=== PATIENT | female | born 1955 | race Caucasian/White ===

== ENCOUNTER 2019-07-20 14:48 | Outpatient (CLI) | payer BC ==
--- NOTE | 2019-07-20 15:19 | ULT ---
DOPPLER VENOUS ULTRASOUND OF THE RIGHT LOWER EXTREMITY: Date: 07/20/19 INDICATION: Edema and redness in the right lower extremity with pain. TECHNIQUE: Winkler scale, color Doppler, and vascular duplex with spectral analysis was performed of the deep venou s structures of the right lower extremity. The common femoral vein, superficial femoral vein, proxima l greater saphenous vein, proximal greater profunda vein, popliteal, and posterior tibial veins were assessed. Additional images were obtained of the region of pain along the right greater saphenous vei n of the foreleg and medial foot. FINDINGS: Normal compression, flow, and augmentation was seen within the deep venous structures of the right lo wer extremity. Within the level of the medial right calf, extending through the medial aspect of the right foot, is occlusive thrombus within the greater saphenous vein. IMPRESSION: 1. Superficial venous thrombosis of the greater saphenous vein from the level of the medial calf thr ough the level of the medial foot. 2. No evidence of deep venous thrombosis within the right lower extremity. POS: OFF
== END 2019-07-20 14:49 | disposition home or self-care (01) ==
LOC: BICULT 14:48
PROVIDERS: ATTEND Family Medicine
DX: M79.604 Pain in right leg (principal); I82.811 Embolism and thrombosis of superficial veins of right lower extremity

== ENCOUNTER 2020-05-07 08:41 | Emergency (ER) | payer BC ==
[2020-05-07 10:15] LABS: #Basophils 0.1 thou/uL (0.0-0.2); #Eosinphils 0.1 thou/uL (0.0-0.7); #Lymphocytes 1.5 thou/uL (1.20-3.40); #Monocytes 0.7 thou/uL (0.11-0.59); #Neutrophils 5.4 thou/uL (1.40-6.50); %Basophils 0.8 % (0.0-1.0); %Eosinophils 1.7 % (0.0-10.0); %Monocytes 9.5 % (0.0-10.0); %Neutrophils 69.1 % (42.0-75.0); Hemoglobin 12.4 g/dL (12.0-16.0); Mean Corpuscular HGB CONC 31.9 g/dL (32.0-36.0); Mean Corpuscular Hemoglobin 28.4 pg (27.0-31.0); Mean Corpuscular Volume 88.9 fL (78.0-98.0); Mean Platelet Volume 7.5 fL (7.4-10.4); Platelet Count 220 thou/uL (130-400); Red Blood Cell (RBC) Count 4.37 mill/uL (4.20-5.40); White Blood Cell (WBC) Count 7.8 thou/uL (4.8-10.8)
[2020-05-07 10:21] LABS: INR-International Normal Ratio 1.1; Prothrombin Time 13.8 sec (12.0-14.7)
[2020-05-07 10:22] LABS: PTT 29.2 sec (22.9-36.1)
[2020-05-07 10:32] LABS: ALT (SGPT) 16 U/L (8-55); AST (SGOT) 13 U/L (5-34); Albumin 3.8 g/dL (3.4-4.8); Alkaline Phosphatase 79 U/L (40-110); Anion Gap 14 mmol/L (10-20); BUN (Urea Nitrogen) 23 mg/dL (9.8-20.1); Bilirubin, Total 0.5 mg/dL (0.2-1.2); Calc. Creatinine Clearance 0 mL/min (70-130); Calcium 10.2 mg/dL (7.8-10.44); Carbon Dioxide 23 mmol/L (23-31); Chloride 106 mmol/L (98-107); Estimated GFR-MDRD 49; Globulin 2.9 g/dL (2.4-3.5); Glucose 83 mg/dL (80-115); Protein, Total 6.7 g/dL (6.0-8.3); Sodium 138 mmol/L (136-145)
[2020-05-07] MEDS ORDERED: Enoxaparin Sodium 100 MG/ML SYRINGE ONE (10:37)
--- NOTE | 2020-05-07 10:58 | ULT ---
LEFT LOWER EXTREMITY VENOUS DUPLEX STUDY: INDICATIONS: Left lower extremity pain and edema. TECHNIQUE: The deep veins of the left lower extremity are evaluated with ultrasound and Doppler. Color Doppler w ith spectral analysis and compression performed. FINDINGS: Normal flow and compression is seen in the left common femoral vein and superficial femoral vein. However there is occlusive thrombus in the left popliteal vein and in the left posterior tibial vein. IMPRESSION: 1. Deep venous thrombosis in the left lower extremity with thrombus seen in the popliteal vein and in the posterior tibial vein below the knee. 2. The technologist relayed these findings to the patient's nurse. CODE CR POS: ALEIDA
[2020-05-07] MEDS ORDERED: Apixaban 5 MG TAB PO SCH (12:30)
--- NOTE | 2020-05-07 18:33 | CON ---
DATE OF CONSULTATION: 05/07/20 DATE OF ENCOUNTER: 05/07/20 REASON FOR CONSULTATION: DVT. HISTORY OF PRESENT ILLNESS: This patient is a 64-year-old female who presented with left lower extremity pain. The patient has a history of some superficial phlebitis as demonstrated on ultrasound of her right lower extremity in July of 2019. She also has restless legs syndrome and so her legs do give her some discomfort. The patient reports that several days ago she started having some redness in her left calf posteriorly. She thought it was some type of an insect bite, radiated up to the mid calf area, rated 3 to 4 out of 10. She had no chest pain, no shortness of breath. The patient did report that starting night, she had some vomiting and generalized weakness with subsequent diarrhea that lasted through yesterday but that appears to be generally resolved. She denies any fevers, chills, cough, or shortness of breath. The patient does drive from [place] to [place] every day and sits at a desk all day. Other than that, she has been on no long trips and has had no lower extremity injuries or immobility that she is aware of. The patient does report she had a coronavirus screening back in January at work, but has not had one since. PAST MEDICAL HISTORY: Notable for hypertension, hyperlipidemia, sleep apnea and restless legs syndrome. SURGICAL HISTORY: Hysterectomy. SOCIAL HISTORY: Nonsmoker, nondrinker, nondrug user. She is , lives at home. CURRENT MEDICATIONS: 1. Gabapentin 300 mg q.i.d. 2. Garlic 200 mg at bedtime. 3. Hydralazine 25 mg b.i.d. 4. Lisinopril 20 mg b.i.d. 5. Omeprazole 40 mg daily. 6. Ropinirole 3 mg daily. 7. Tramadol 50 mg q.4 hours p.r.n. ALLERGIES: SULFA. PHYSICAL EXAMINATION: VITAL SIGNS: BP 129/57, pulse 57, respirations 20, O2 saturation 99% on room air, temperature is 98.4. GENERAL APPEARANCE: Age-appropriate female, in no distress. She is awake, alert, oriented, pleasant, cooperative. HEENT: PERRL. NECK: Supple and symmetric. HEART: Regular rate and rhythm without murmurs. LUNGS: Clear bilaterally. ABDOMEN: Soft, nontender, and nondistended. Positive bowel sounds. No masses. No organomegaly. EXTREMITIES: There is no significant cyanosis or clubbing. The left lower extremity has a small area of erythema from the Achilles area going up about 3 to 4 inches. There are no palpable cords. This entire calf area is mildly generally tender, but not generally edematous or erythematous other than that localized area. LABORATORY DATA: White count 7.8, hemoglobin 12.4, platelets 220, lymphocytes 19,000. INR is 1.1, PTT 29.2, PT is 13.8. Sodium 138, potassium 5.0, chloride 106, CO2 is 23, BUN 23, creatinine is 1.13, glucose 83. AST is 13, ALT 16, albumin 3.8. Vascular ultrasound of the lower extremities showed DVT in the left lower extremity with thrombus seen in the popliteal vein and posterior tibial vein below the knee. IMPRESSION AND PLAN: 1. Left lower extremity deep venous thrombosis. The patient has ultrasound confirming that this is at or below the level of the knee, therefore would be considered at low risk. Therefore, I think she can safely be discharged on oral Eliquis. She will be given a 10 mg dose here. She will have a prescription for 10 mg b.i.d. for one week and then 5 mg b.i.d. subsequent. She is to follow up with Dr. Guevara. It is unclear whether this was provoked by the GI symptoms and the traveling back and forth and long period sitting at her desk at work time. Ultimately, decision will have to be made regarding duration of treatment. 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 2. Dehydration. The patient has had some GI symptoms and associated nausea, vomiting, diarrhea. She has mild prerenal azotemia on her labs. We will encourage her to push fluids and follow up with Dr. Guevara to have repeat labs done. 3. Gastroenteritis symptoms, appear to be resolved. I did recommend the patient consider COVID screening especially in light of very mild lymphopenia. However , the patient has had this done before, found it fairly unpleasant and would prefer not to do that again. I asked her to discuss this with Dr. Guevara further. There is a screening available to her tomorrow in [place] and she can get tested there if need be. In the meantime, she should take appropriate isolation precautions. Job ID: [id number] MTDD
--- NOTE | 2020-05-08 12:01 | EKG ---
Test Reason : Blood Pressure : / mmHG Vent. Rate : 057 BPM Atrial Rate : 057 BPM P-R Int : 116 ms QRS Dur : 084 ms QT Int : 394 ms P-R-T Axes : -01 -04 013 degrees QTc Int : 383 ms Sinus bradycardia Moderate voltage criteria for LVH, may be normal variant Borderline ECG Confirmed by MUSHTAQ VALDIVIA, MARTHA ([id number]), department editor URIEL BULLARD ([id number]) on 05/08/2020 12:01:23 PM Referred By: Confirmed By:MARTHA LANDIN MD
== END 2020-05-07 13:34 | disposition home or self-care (01) ==
LOC: ERS 08:41
DX: I82.402 Acute embolism and thrombosis of unspecified deep veins of left lower extremity (principal); E78.5 Hyperlipidemia, unspecified; E78.00 Pure hypercholesterolemia, unspecified; I10 Essential (primary) hypertension; G47.30 Sleep apnea, unspecified; F41.9 Anxiety disorder, unspecified; Z79.899 Other long term (current) drug therapy
CPT/HCPCS: 36415; 80053; 85025; 85610; 85730; 93005; 96372; J1650

== ENCOUNTER 2020-08-10 14:49 | Outpatient (CLI) | payer BC ==
--- NOTE | 2020-08-10 15:51 | ULT ---
Exam:Leftlower extremity venous ultrasound with Doppler HISTORY: Leftlower extremity swelling COMPARISON: 05/07/2020 TECHNIQUE: Grayscale, color flow, Doppler imaging and spectral wave muscle performed left lower extre mity venous system FINDINGS: There is compressibility, presence of flow and augmentation in the common femoral vein, femoral vein and popliteal vein. There is flow in the posterior tibial vein. There is flow in the greater saphenous vein and profunda femoral vein IMPRESSION: No thrombus in the left lower extremity deep venous system.
== END 2020-08-10 14:50 | disposition home or self-care (01) ==
LOC: BICULT 14:49
PROVIDERS: ATTEND Family Medicine
DX: I82.409 Acute embolism and thrombosis of unspecified deep veins of unspecified lower extremity (principal)

== ENCOUNTER 2021-04-09 11:30 | Emergency (ER) | payer BC ==
[2021-04-09 12:54] LABS: #Eosinphils 0.1 thou/uL (0.0-0.7); #Lymphocytes 1.4 thou/uL (1.20-3.40); #Monocytes 0.6 thou/uL (0.11-0.59); #Neutrophils 6.1 thou/uL (1.40-6.50); %Basophils 0.5 % (0.0-1.0); %Eosinophils 1.1 % (0.0-10.0); %Lymphocytes 17.5 % (21.0-51.0); %Monocytes 6.7 % (0.0-10.0); %Neutrophils 74.3 % (42.0-75.0); Hemoglobin 11.6 g/dL (12.0-16.0); Mean Corpuscular HGB CONC 31.7 g/dL (32.0-36.0); Mean Corpuscular Hemoglobin 27.1 pg (27.0-31.0); Mean Corpuscular Volume 85.4 fL (78.0-98.0); Mean Platelet Volume 7.2 fL (7.4-10.4); Platelet Count 249 thou/uL (130-400); RBC Distribution Width 15.1 % (11.5-14.5); Red Blood Cell (RBC) Count 4.28 mill/uL (4.20-5.40); White Blood Cell (WBC) Count 8.2 thou/uL (4.8-10.8)
[2021-04-09 13:16] LABS: ALT (SGPT) 19 U/L (8-55); AST (SGOT) 15 U/L (5-34); Alkaline Phosphatase 65 U/L (40-110); Anion Gap 13 mmol/L (10-20); BUN (Urea Nitrogen) 19 mg/dL (9.8-20.1); Bilirubin, Total 0.2 mg/dL (0.2-1.2); Calc. Creatinine Clearance 0 mL/min (70-130); Calcium 10.2 mg/dL (7.8-10.44); Carbon Dioxide 23 mmol/L (23-31); Chloride 106 mmol/L (98-107); Globulin 2.9 g/dL (2.4-3.5); Glucose 84 mg/dL (80-115); Potassium 4.1 mmol/L (3.5-5.1); Protein, Total 6.9 g/dL (5.8-8.1); Sodium 138 mmol/L (136-145)
[2021-04-09 13:22] LABS: INR-International Normal Ratio 1.1; PTT 27.5 sec (22.9-36.1); Prothrombin Time 14.4 sec (12.0-14.7)
[2021-04-11 16:22] LABS: Factor VIII Test 230.7 % ACTIVE (56-157)
[2021-04-11 16:27] LABS: Protein C Activity 138 % (78-152)
[2021-04-12 13:03] LABS: Cardiolipin IgA Ab 1.2 APL-U/mL (<14 Negative); Cardiolipin IgG Ab 4.7 GPL-U/mL (<10 Negative); Cardiolipin IgM Ab Less than 0.8 MPL-U/mL (<10 Negative); EliA APS New Method **** NEW METHOD ****
[2021-04-16 13:00] LABS: HEX PHOS LA Tube 1 36.7 SEC; HEX PHOS LA Tube 2 34.5 SEC; Hexagonal Phospholipid Neut 2.2 SEC (0-8.0)
[2021-04-16 17:13] LABS: Activated Protein C Resistance 2.8 ratio (.)
== END 2021-04-09 13:50 | disposition home or self-care (01) ==
LOC: ERS 11:30
DX: I80.02 Phlebitis and thrombophlebitis of superficial vessels of left lower extremity (principal); M19.90 Unspecified osteoarthritis, unspecified site; E66.9 Obesity, unspecified; G47.30 Sleep apnea, unspecified; E78.5 Hyperlipidemia, unspecified; E78.00 Pure hypercholesterolemia, unspecified; I10 Essential (primary) hypertension; Z86.718 Personal history of other venous thrombosis and embolism; Z79.899 Other long term (current) drug therapy; Z79.01 Long term (current) use of anticoagulants
CPT/HCPCS: 36415; 80053; 83090; 85025; 85240; 85300; 85303; 85305; 85307; 85379; 85598; 85730; 86147

== ENCOUNTER 2022-04-10 07:08 | Emergency (ER) | payer MEDICARE ==
[2022-04-10] MEDS ORDERED: Ketorolac Tromethamine 30 MG/ML VIAL ONE (08:11)
[2022-04-10] MEDS ORDERED: Lorazepam 2 MG/ML VIAL ONE (08:11)
[2022-04-10] MEDS ORDERED: Fentanyl 100 MCG/2 ML VIAL ONE (08:11)
[2022-04-10] MEDS ORDERED: Dexamethasone 10 MG/ML VIAL ONE (08:11)
== END 2022-04-10 10:18 | disposition home or self-care (01) ==
LOC: ERS 07:08
DX: M54.42 Lumbago with sciatica, left side (principal); M16.12 Unilateral primary osteoarthritis, left hip; Z86.718 Personal history of other venous thrombosis and embolism; K21.9 Gastro-esophageal reflux disease without esophagitis; E78.5 Hyperlipidemia, unspecified; I10 Essential (primary) hypertension; G25.81 Restless legs syndrome; Z79.899 Other long term (current) drug therapy
CPT/HCPCS: 72100; 96374; 96375; J1100; J1885; J2060; J3010

== ENCOUNTER 2022-08-21 14:34 | Emergency (ER) | payer OTHER, MEDICARE ==
[2022-08-21 15:15] LABS: #Eosinphils 0.1 thou/uL (0.0-0.7); #Lymphocytes 1.9 thou/uL (1.20-3.40); #Monocytes 0.7 thou/uL (0.11-0.59); #Neutrophils 3.9 thou/uL (1.40-6.50); %Basophils 0.5 % (0.0-1.0); %Eosinophils 1.3 % (0.0-10.0); %Lymphocytes 28.6 % (21.0-51.0); %Monocytes 10.6 % (0.0-10.0); %Neutrophils 59.1 % (42.0-75.0); Hemoglobin 11.7 g/dL (12.0-16.0); Mean Corpuscular HGB CONC 31.1 g/dL (32.0-36.0); Mean Corpuscular Hemoglobin 26.9 pg (27.0-31.0); Mean Corpuscular Volume 86.7 fL (78.0-98.0); Mean Platelet Volume 7.8 fL (7.4-10.4); Platelet Count 257 thou/uL (130-400); RBC Distribution Width 15.2 % (11.5-14.5); Red Blood Cell (RBC) Count 4.35 mill/uL (4.20-5.40); White Blood Cell (WBC) Count 6.6 thou/uL (4.8-10.8)
[2022-08-21 15:31] LABS: ALT (SGPT) 11 U/L (8-55); AST (SGOT) 16 U/L (5-34); Albumin 4.1 g/dL (3.4-4.8); Alkaline Phosphatase 80 U/L (40-110); Anion Gap 12 mmol/L (10-20); BUN (Urea Nitrogen) 13 mg/dL (9.8-20.1); Bilirubin, Total 0.4 mg/dL (0.2-1.2); Calc. Creatinine Clearance 0 mL/min (70-130); Calcium 9.9 mg/dL (7.8-10.44); Carbon Dioxide 24 mmol/L (23-31); Chloride 106 mmol/L (98-107); Estimated GFR 75; Globulin 2.9 g/dL (2.4-3.5); Glucose 95 mg/dL (80-115); Potassium 4.1 mmol/L (3.5-5.1); Sodium 138 mmol/L (136-145)
[2022-08-21] MEDS ORDERED: Ketorolac Tromethamine 30 MG/ML VIAL ONE (20:03)
[2022-08-21] MEDS ORDERED: Ondansetron ODT 4 MG TAB ONE (20:03)
[2022-08-21] MEDS ORDERED: Morphine 4 MG/ML VIAL ONE (20:03)
== END 2022-08-21 21:37 | disposition home or self-care (01) ==
LOC: ERS 14:34
DX: M79.604 Pain in right leg (principal); M19.071 Primary osteoarthritis, right ankle and foot; K21.9 Gastro-esophageal reflux disease without esophagitis; I10 Essential (primary) hypertension; E78.5 Hyperlipidemia, unspecified; G62.9 Polyneuropathy, unspecified; X50.1XXA Overexertion from prolonged static or awkward postures, initial encounter; Y92.512 Supermarket, store or market as the place of occurrence of the external cause; Z79.01 Long term (current) use of anticoagulants; Z86.718 Personal history of other venous thrombosis and embolism; Z79.899 Other long term (current) drug therapy
CPT/HCPCS: 36415; 80053; 85025; 96372; J1885; J2270; Q0162

== ENCOUNTER 2022-09-07 12:07 | Emergency (ER) | payer MEDICARE ==
[2022-09-07] MEDS ORDERED: Morphine 4 MG/ML VIAL ONE (13:30)
== END 2022-09-07 13:46 | disposition home or self-care (01) ==
LOC: ERS 12:07
DX: M25.461 Effusion, right knee (principal); K21.9 Gastro-esophageal reflux disease without esophagitis; E78.5 Hyperlipidemia, unspecified; I10 Essential (primary) hypertension
CPT/HCPCS: 96372; J2270

== ENCOUNTER 2022-10-18 11:36 | Outpatient (CLI) | payer MEDICARE | END 2022-10-18 11:37 | disposition home or self-care (01) | LOC: SCSMRI 11:36 | PROVIDERS: ATTEND Nurse Practitioner Family | DX: M25.561 Pain in right knee (principal); S83.241A Other tear of medial meniscus, current injury, right knee, initial encounter; M84.361A Stress fracture, right tibia, initial encounter for fracture ==

== ENCOUNTER 2023-08-29 13:11 | Emergency (ER) | payer MEDICARE ==
[2023-08-29 13:43] LABS: #Eosinphils 0.2 thou/uL (0.0-0.7); #Monocytes 0.4 thou/uL (0.11-0.59); #Neutrophils 3.1 thou/uL (1.40-6.50); %Basophils 0.7 % (0.0-1.0); %Lymphocytes 31.6 % (21.0-51.0); %Monocytes 7.6 % (0.0-10.0); %Neutrophils 56.9 % (42.0-75.0); Hematocrit 36.7 % (36.0-47.0); Hemoglobin 11.5 g/dL (12.0-16.0); Mean Corpuscular HGB CONC 31.3 g/dL (32.0-36.0); Mean Corpuscular Hemoglobin 27.4 pg (27.0-31.0); Mean Corpuscular Volume 87.4 fl (78.0-98.0); Mean Platelet Volume 9.9 fL (7.4-10.4); Platelet Count 251 10x3/uL (130-400); White Blood Cell (WBC) Count 5.4 10x3/uL (4.8-10.8)
[2023-08-29 14:06] LABS: ALT (SGPT) 12 U/L (8-55); AST (SGOT) 20 U/L (5-34); Albumin 4.3 g/dL (3.4-4.8); Alkaline Phosphatase 66 U/L (40-110); Anion Gap 13 mmol/L (10-20); BUN (Urea Nitrogen) 17 mg/dL (9.8-20.1); Bilirubin, Total 0.2 mg/dL (0.2-1.2); Calc. Creatinine Clearance 0 mL/min (70-130); Calcium 9.8 mg/dL (7.8-10.44); Carbon Dioxide 23 mmol/L (23-31); Chloride 107 mmol/L (98-107); Estimated GFR 65; Globulin 2.8 g/dL (2.4-3.5); Glucose 122 mg/dL (80-115); Potassium 4.2 mmol/L (3.5-5.1); Protein, Total 7.1 g/dL (5.8-8.1); Sodium 139 mmol/L (136-145)
== END 2023-08-29 17:57 | disposition home or self-care (01) ==
LOC: ERS 13:11
DX: R60.0 Localized edema (principal); M79.671 Pain in right foot; M79.672 Pain in left foot; K21.9 Gastro-esophageal reflux disease without esophagitis; I10 Essential (primary) hypertension; G47.30 Sleep apnea, unspecified; M19.90 Unspecified osteoarthritis, unspecified site; G62.9 Polyneuropathy, unspecified; E78.5 Hyperlipidemia, unspecified; Z86.718 Personal history of other venous thrombosis and embolism; Z79.899 Other long term (current) drug therapy
CPT/HCPCS: 36415; 80053; 83880; 85025; 93005; 93970

== ENCOUNTER 2024-01-05 07:38 | Emergency (ER) | payer MEDICARE ==
[2024-01-05 10:09] LABS: #Eosinphils 0.1 thou/uL (0.0-0.7); #Monocytes 0.5 thou/uL (0.11-0.59); #Neutrophils 5.1 thou/uL (1.40-6.50); %Basophils 0.4 % (0.0-1.0); %Lymphocytes 15.7 % (21.0-51.0); %Monocytes 7.8 % (0.0-10.0); %Neutrophils 73.7 % (42.0-75.0); Hematocrit 39.1 % (36.0-47.0); Hemoglobin 12.2 g/dL (12.0-16.0); Mean Corpuscular HGB CONC 31.2 g/dL (32.0-36.0); Mean Corpuscular Hemoglobin 27.5 pg (27.0-31.0); Mean Corpuscular Volume 88.1 fl (78.0-98.0); Mean Platelet Volume 9.5 fL (7.4-10.4); Platelet Count 184 10x3/uL (130-400); RBC Distribution Width 15.2 % (11.5-14.5); Red Blood Cell (RBC) Count 4.44 mill/uL (4.20-5.40); White Blood Cell (WBC) Count 6.9 10x3/uL (4.8-10.8)
[2024-01-05 10:20] LABS: INR-International Normal Ratio 1.1; Prothrombin Time 14.4 sec (12.0-14.7)
[2024-01-05 10:21] LABS: PTT 25.8 sec (22.9-36.1)
[2024-01-05 10:33] LABS: ALT (SGPT) 16 U/L (8-55); AST (SGOT) 17 U/L (5-34); Albumin 3.9 g/dL (3.4-4.8); Alkaline Phosphatase 77 U/L (40-110); Anion Gap 15 mmol/L (10-20); BUN (Urea Nitrogen) 12 mg/dL (9.8-20.1); Bilirubin, Total 0.5 mg/dL (0.2-1.2); Calc. Creatinine Clearance 0 mL/min (70-130); Calcium 9.5 mg/dL (7.8-10.44); Carbon Dioxide 23 mmol/L (23-31); Chloride 103 mmol/L (98-107); Estimated GFR 69; Globulin 3.3 g/dL (2.4-3.5); Glucose 84 mg/dL (80-115); Potassium 3.9 mmol/L (3.5-5.1); Protein, Total 7.2 g/dL (5.8-8.1); Sodium 137 mmol/L (136-145)
[2024-01-05] MEDS ORDERED: Apixaban 5 MG TAB ONE (11:05)
[2024-01-05] MEDS ORDERED: HYDROcodone/Acetaminophen 5/325 mg Tablet ONE (11:12)
== END 2024-01-05 11:33 | disposition home or self-care (01) ==
LOC: ERS 07:38
DX: I82.401 Acute embolism and thrombosis of unspecified deep veins of right lower extremity (principal); K21.9 Gastro-esophageal reflux disease without esophagitis; E78.5 Hyperlipidemia, unspecified; I10 Essential (primary) hypertension; H26.9 Unspecified cataract; G47.33 Obstructive sleep apnea (adult) (pediatric); M19.90 Unspecified osteoarthritis, unspecified site; M54.10 Radiculopathy, site unspecified; Z55.6 Problems related to health literacy; Z79.899 Other long term (current) drug therapy
CPT/HCPCS: 80053; 85025; 85610; 85730

== ENCOUNTER 2024-07-28 13:48 | Outpatient (CLI) | payer MEDICARE ==
[2024-07-28 16:37] LABS: #Basophils Less than 0.03 10x3/uL (0.0-0.2); %Basophils 0.2 % (0.0-1.0); %Eosinophils 0.8 % (0.0-10.0); %Lymphocytes 19.4 % (21.0-51.0); %Monocytes 8.2 % (0.0-10.0); %Neutrophils 70.8 % (42.0-75.0); Hemoglobin 11.9 g/dL (12.0-16.0); Mean Corpuscular HGB CONC 30.5 g/dL (32.0-36.0); Mean Corpuscular Hemoglobin 27.2 pg (27.0-31.0); Platelet Count 316 10x3/uL (130-400); RBC Distribution Width 16.1 % (11.5-14.5); Red Blood Cell (RBC) Count 4.38 mill/uL (4.20-5.40)
[2024-07-28 16:47] LABS: Anion Gap 15 mmol/L (10-20); BUN (Urea Nitrogen) 17 mg/dL (9.8-20.1); Calc. Creatinine Clearance 0 mL/min (70-130); Calcium 10.1 mg/dL (7.8-10.44); Carbon Dioxide 23 mmol/L (23-31); Chloride 105 mmol/L (98-107); Estimated GFR 52; Glucose 87 mg/dL (80-115); Potassium 4.2 mmol/L (3.5-5.1); Sodium 139 mmol/L (136-145)
[2024-07-28 16:49] LABS: INR-International Normal Ratio 1.1; Prothrombin Time 14.2 sec (12.0-14.7)
== END 2024-07-28 13:49 | disposition home or self-care (01) ==
LOC: LABBT 13:48
PROVIDERS: ATTEND Orthopaedic Surgery
DX: Z01.818 Encounter for other preprocedural examination (principal); M17.11 Unilateral primary osteoarthritis, right knee
CPT/HCPCS: 80048; 85025; 85610; 87081; 93005; 93010

== ENCOUNTER 2024-08-10 08:55 | Inpatient (IN) | payer MEDICARE ==
[2024-07-28 14:39] VITALS: BMI 41.8
[2024-08-10] MEDS ORDERED: Tranexamic Acid 1,000 MG/10 ML VIAL ONE (09:46)
[2024-08-10] MEDS ORDERED: Clindamycin/D5W 600 mg/50 ml Premix Bag ONE (09:46)
[2024-08-10] MEDS ORDERED: Sodium Chloride 0.9% 0 ML ONE (09:46)
[2024-08-10] MEDS ORDERED: Vancomycin (BATCH) 1.5 GM/300 ML BAG ONE (09:46)
[2024-08-10] MEDS ORDERED: Bupivacaine PF 0.5% 30 ML VIAL ONE (09:50)
[2024-08-10] MEDS ORDERED: Midazolam HCl 2 mg/2 ml Vial ONE (09:50)
[2024-08-10] MEDS ORDERED: fentaNYL 50 mcg/mL 1 mL Vial ONE ×5 (09:50→16:00)
[2024-08-10] MEDS ORDERED: CEFAZOLIN 2 GM VIAL ONE (10:18)
[2024-08-10] MEDS ORDERED: Bupivacaine 0.25% HCL 30 ML VIAL ONE (10:18)
[2024-08-10] MEDS ORDERED: EPINEPHrine 1 MG/ML VIAL ONE (10:18)
[2024-08-10] MEDS ORDERED: Sodium Chloride 0.9% 100 ML ONE (10:18)
[2024-08-10] MEDS ORDERED: PROPOFOL 20 ML ONE (10:44)
[2024-08-10] MEDS ORDERED: HYDROmorphone 2 MG/ML VIAL ONE (10:44)
[2024-08-10] MEDS ORDERED: Zolpidem Tartrate 5 MG TAB PO PRN ×2 (10:45→16:32)
[2024-08-10] MEDS ORDERED: Ropivacaine 0.2% 550 ML 550 ML NERVE BLCK SCH (10:45)
[2024-08-10] MEDS ORDERED: Promethazine HCl 25 MG/ML VIAL IM PRN ×2 (10:45→16:32)
[2024-08-10] MEDS ORDERED: fentaNYL 50 mcg/mL 1 mL Vial SLOW IVP PRN (10:46)
[2024-08-10] MEDS ORDERED: PHENYLEPHRINE-NS 100 MCG/ML 10 ML SYRINGE ONE (11:39)
[2024-08-10] MEDS ORDERED: Dexamethasone 20 MG/5 ML VIAL ONE (11:54)
[2024-08-10] MEDS ORDERED: Ondansetron PF 4 MG/2 ML Vial ONE (13:38)
[2024-08-10] MEDS ORDERED: diphenhydrAMINE 25 MG CAP PO PRN (16:32)
[2024-08-10] MEDS ORDERED: Acetaminophen 325 MG TAB PO PRN (16:32)
[2024-08-10] MEDS ORDERED: Ondansetron PF 4 MG/2 ML Vial IVP PRN (16:32)
[2024-08-10] MEDS ORDERED: Albuterol 200 PUFF (6.7GM INHALER) INH PRN (18:08)
[2024-08-10] MEDS ORDERED: Clotrimazole 1 % Cream 30 GM TUBE TOP PRN (18:09)
[2024-08-10] MEDS ORDERED: Fluticasone Propionate Nasal Spray 16 gm Bottle NASAL PRN (18:10)
[2024-08-10] MEDS: Ketorolac Tromethamine 30 MG (1 mL) VIAL IVP SCH (19:49)
[2024-08-10] MEDS: Gabapentin 300 MG CAP PO SCH (20:30)
[2024-08-10] MEDS: HYDROcodone/Acetaminophen 10/325 mg Tablet PO PRN (20:30)
[2024-08-10] MEDS: Atorvastatin Calcium 10 MG TAB PO SCH (20:31)
[2024-08-10] MEDS: Aspirin 81 mg Enteric Coated Tablet PO SCH (20:31)
[2024-08-10] MEDS: rOPINIRole HCl 1 MG TAB PO SCH (20:31)
[2024-08-10] MEDS: CEFAZOLIN 2 GM in Sodium Chloride 0.9% 100 ML IVPB SCH (20:31)
[2024-08-10] MEDS: Sodium Chloride 0.9% 1,000 ML IV SCH (22:14)
[2024-08-11] MEDS: rOPINIRole HCl 1 MG TAB PO SCH (04:59)
[2024-08-11 05:44] LABS: Hematocrit 33.7 % (36.0-47.0); Hemoglobin 10.3 g/dL (12.0-16.0); Mean Corpuscular HGB CONC 30.6 g/dL (32.0-36.0); Mean Corpuscular Hemoglobin 27.8 pg (27.0-31.0); Mean Corpuscular Volume 91.1 fL (78.0-98.0); Mean Platelet Volume 9.9 fL (7.4-10.4); Platelet Count 206 10x3/uL (130-400)
[2024-08-11] MEDS: HYDROcodone/Acetaminophen 10/325 mg Tablet PO PRN (08:58)
[2024-08-11] MEDS: Pantoprazole DR 40 MG TAB PO SCH (08:59)
[2024-08-11] MEDS: Ferrous Gluconate 324 MG TAB PO SCH (08:59)
[2024-08-11] MEDS: Hydrochlorothiazide 25 MG TAB PO SCH (09:00)
[2024-08-11] MEDS: Lisinopril 20 MG TAB PO SCH (09:01)
[2024-08-11] MEDS: Senokot S 8.6-50 MG TAB PO SCH (09:01)
[2024-08-11] MEDS: Multivitamin W/ Minerals 1 TAB PO SCH (09:01)
[2024-08-11] MEDS: traMADol HCl 50 MG TAB PO PRN ×2 (13:00→18:29)
[2024-08-12 05:34] LABS: Hematocrit 29.5 % (36.0-47.0); Mean Corpuscular HGB CONC 30.5 g/dL (32.0-36.0); Mean Corpuscular Hemoglobin 27.8 pg (27.0-31.0); Platelet Count 194 10x3/uL (130-400); RBC Distribution Width 16.6 % (11.5-14.5); Red Blood Cell (RBC) Count 3.24 mill/uL (4.20-5.40)
[2024-08-12] MEDS: Ondansetron PF 4 MG/2 ML Vial IVP PRN (10:24)
[2024-08-13 05:07] LABS: Hematocrit 29.1 % (36.0-47.0); Hemoglobin 8.9 g/dL (12.0-16.0); Mean Corpuscular HGB CONC 30.6 g/dL (32.0-36.0); Mean Corpuscular Hemoglobin 27.9 pg (27.0-31.0); Mean Corpuscular Volume 91.2 fL (78.0-98.0); Mean Platelet Volume 9.8 fL (7.4-10.4); Platelet Count 198 10x3/uL (130-400); RBC Distribution Width 16.5 % (11.5-14.5); Red Blood Cell (RBC) Count 3.19 mill/uL (4.20-5.40)
[2024-08-13] MEDS: Apixaban 5 MG TAB PO SCH ×2 (08:29)
[2024-08-13] MEDS: FLU (Fluad Triv) TS24-25 (65UP)/MF59C/PF 45 MCG/0.5 ML Syringe IM ONE (09:13)
[2024-08-13 15:40] VITALS: BP 128/63; TEMP 98.6
== END 2024-08-13 16:49 | disposition home or self-care (01) | DRG 470 ==
LOC: SDC 08:55 → SURG A 17:47
PROVIDERS: ADMIT Orthopaedic Surgery; ATTEND Orthopaedic Surgery
PROC: 0SRC0J9 Replacement of Right Knee Joint with Synthetic Substitute, Cemented, Open Approach (ICD-10-PCS; principal; 2024-08-10)
PROC: 3E033XZ Introduction of Vasopressor into Peripheral Vein, Percutaneous Approach (ICD-10-PCS; 2024-08-10)
DX: M17.11 Unilateral primary osteoarthritis, right knee (principal); K21.9 Gastro-esophageal reflux disease without esophagitis; E78.5 Hyperlipidemia, unspecified; I10 Essential (primary) hypertension; S76.111A Strain of right quadriceps muscle, fascia and tendon, initial encounter; G47.33 Obstructive sleep apnea (adult) (pediatric); G62.9 Polyneuropathy, unspecified; Z88.2 Allergy status to sulfonamides; Z98.49 Cataract extraction status, unspecified eye; Z90.710 Acquired absence of both cervix and uterus; G25.81 Restless legs syndrome
CPT/HCPCS: 36415; 85027; A4306; C1713; C1776; C1889; J0171; J0665; J1100; J1170; J1885; J2250; J2405; J2704; J2795; J3010; J3370; J3490